=== PATIENT | male | born 1955 | race Caucasian/White ===

== ENCOUNTER → 2018-04-20 15:26 | Outpatient (CLI) | payer OTHER, SELFPAY ==
[2018-04-20 17:47] LABS: AST(SGOT) 44 U/L (15-37); Alanine Aminotransfer ALT/SGPT 62 U/L (16-61); Albumin, Serum 3.8 g/dL (3.2-5.0); Alkaline Phosphatase 77 U/L (45-117); Bilirubin, Direct 0.25 mg/dL (0.00-0.30); Ferritin 755 ng/mL (26-388); GGTP 76 U/L (15-85); Globulin 4.2 g/dL (2.2-4.2)
== END ==
PROVIDERS: Family Provider Family Medicine; PCP Family Medicine; Visit Provider Internal Medicine Gastroenterology
DX: K76.0 Fatty (change of) liver, not elsewhere classified (principal); K75.9 Inflammatory liver disease, unspecified
CPT/HCPCS: 36415; 80076; 82728; 82977

== ENCOUNTER → 2018-10-16 13:57 | Outpatient (CLI) | payer OTHER, SELFPAY ==
[2018-10-16 15:54] LABS: AST(SGOT) 16 U/L (15-37); Alanine Aminotransfer ALT/SGPT 31 U/L (16-61); Alkaline Phosphatase 62 U/L (45-117); GGTP 53 U/L (15-85); Globulin 4.1 g/dL (2.2-4.2); Protein, Total 8.1 g/dL (6.4-8.2)
[2018-10-16 16:00] LABS: Hemoglobin A1c 8.1 % (4.2-6.3)
== END ==
PROVIDERS: Family Provider Family Medicine; PCP Family Medicine; Referring Provider Internal Medicine Gastroenterology; Visit Provider Internal Medicine Gastroenterology
DX: K76.0 Fatty (change of) liver, not elsewhere classified (principal); E11.9 Type 2 diabetes mellitus without complications
CPT/HCPCS: 36415; 80076; 82977; 83036